=== PATIENT | female | born 1975 | race Two or more races ===

== ENCOUNTER 2019-04-29 04:34 | Emergency (ER) | payer OTHER ==
[~2019-04-29] VITALS: Ht 165.1 cm; Wt 81.2 kg
--- NOTE | 2019-04-29 04:45 | NUR ---
PT C/O RIGHT SCAPULAR PAIN FOR A MONTH HOWEVER LAST NIGHT PATIENT REPORTS SHE BEGAN TO HAVE SHARP EPIGASTRIC PAIN RADIATING TO HER BACK. PT A&OX4, NAD. CALL LIGHT WITHIN REACH. S/O AT BEDSIDE. WILL CONTINUE TO MONITOR.
[2019-04-29] MEDS ORDERED: FAMOTIDINE 20 MG/2 ML ONE (05:15)
[2019-04-29] MEDS ORDERED: MAALOX/HYOSCYAMINE/LIDOCAINE 45 ML BTL ONE (05:15)
[2019-04-29] MEDS ORDERED: ATOR20TA37 PO (05:23)
[2019-04-29] MEDS ORDERED: LABE100T6 PO (05:23)
[2019-04-29] MEDS ORDERED: AMLO-150 PO (05:23)
[2019-04-29] MEDS ORDERED: LEVO25TA4 PO (05:23)
[2019-04-29 05:24] LABS: BASOPHILS # (AUTO) 0.04 x10^3/uL (0-0.1); BASOPHILS % (AUTO) 1 % (0-1); EOSINOPHILS # (AUTO) 0.25 x10^3/uL (0-0.4); EOSINOPHILS % (AUTO) 3 % (1-7); LYMPHOCYTES # (AUTO) 2.64 x10^3/uL (1-3.4); LYMPHOCYTES % (AUTO) 29 % (22-44); MD NO; MEAN CORPUSCULAR HGB CONC 32.7 g/dL (32.4-35.8); MEAN CORPUSCULAR VOLUME 94.7 fL (80-100); MEAN PLATELET VOLUME 9.5 fL (7.4-10.4); MONOCYTES # (AUTO) 0.62 x10^3/uL (0.2-0.8); MONOCYTES % (AUTO) 7 % (2-9); NEUTROPHILS # (AUTO) 5.54 x10^3/uL (1.8-6.8); NEUTROPHILS % (AUTO) 61 % (42-75); PLATELET COUNT 263 x10^3/uL (130-400); RED BLOOD COUNT 4.19 x10^6/uL (3.82-5.3); RED CELL DISTRIBUTION WIDTH 13.1 % (9.6-15.2)
[2019-04-29] MEDS ORDERED: SODIUM CHLORIDE FLUSH 10ML SYR IVF ONE (05:30)
[2019-04-29] MEDS ORDERED: FAMOTIDINE 20 MG/2 ML IVP ONE (05:30)
[2019-04-29] MEDS ORDERED: MAALOX/HYOSCYAMINE/LIDOCAINE 45 ML BTL PO ONE (05:30)
[2019-04-29 05:34] LABS: MICROSCOPIC NOT IND
[2019-04-29 05:35] LABS: ALBUMIN 3.5 g/dL (3.4-5.0); ANION GAP 5 mmol/L (5-15); CALCIUM 8.4 mg/dL (8.5-10.1); CHLORIDE 110 mmol/L (98-107)
[2019-04-29 05:38] LABS: CULTURE INDICATED? NO
--- NOTE | 2019-04-29 05:40 | NUR ---
PT UPDATED ON PLAN OF CARE. NO FURTHER NEEDS AT THIS TIME. WILL CONTINUE TO MONITOR.
[2019-04-29 05:43] LABS: ALANINE AMINOTRANSFERASE 32 U/L (12-78); ALKALINE PHOSPHATASE 69 U/L (45-117); BILIRUBIN,TOTAL 0.7 mg/dL (0.2-1.0); CREATININE 0.73 mg/dL (0.55-1.02); TOTAL PROTEIN 7.2 g/dL (6.4-8.2)
[2019-04-29 06:26] LABS: TROPONIN I < 0.015 ng/mL (0.000-0.045)
[2019-04-29 06:57] VITALS: BP 116/68
== END 2019-04-29 07:00 | disposition home or self-care (01) ==
LOC: ED 05:43
DX: K29.00 Acute gastritis without bleeding (principal)
CPT/HCPCS: 36415; 71045; 80053; 81003; 83880; 84484; 84703; 85025; 93005; 96374; 99284; J3490